=== PATIENT | female | born 1970 | race Caucasian/White ===

== ENCOUNTER 2022-04-02 12:44 | Emergency (ER) | payer OTHER ==
[2022-04-02] MEDS ORDERED: LIDOCAINE HCL 2% (20ML MULTI-DOSE VIAL) ONE (12:49)
[2022-04-02 13:06] VITALS: BP 122/70; PULSE 78; TEMP 98.4; BMI 27.3
[2022-04-02] MEDS ORDERED: LIDOCAINE HCL 2% (50ML VIAL) SQ ONE (13:08)
== END 2022-04-02 13:24 | disposition home or self-care (01) ==
LOC: FER 12:44
PROC: 0HQGXZZ Repair Left Hand Skin, External Approach (ICD-10-PCS; principal; 2022-04-02)
DX: S61.412A Laceration without foreign body of left hand, initial encounter (principal); W25.XXXA Contact with sharp glass, initial encounter
CPT/HCPCS: 99282-25

== ENCOUNTER 2022-04-11 11:05 | Emergency (ER) | payer OTHER ==
[2022-04-11 11:12] VITALS: BP 106/71; PULSE 74; TEMP 98.5; BMI 27.3
== END 2022-04-11 11:31 | disposition home or self-care (01) ==
LOC: FER 11:05
DX: S61.412A Laceration without foreign body of left hand, initial encounter (principal); W25.XXXA Contact with sharp glass, initial encounter; Z48.02 Encounter for removal of sutures
CPT/HCPCS: 99281-25